=== PATIENT | male | born 1950 | race Two or more races ===

== ENCOUNTER 2023-08-29 05:09 | Day surgery (SDC) | payer OTHER ==
[2023-08-04 11:19] VITALS: BMI 23.3
[2023-08-29] MEDS ORDERED: PROPOFOL 20 ML ONE (12:34)
[2023-08-29] MEDS ORDERED: FENTANYL CITRATE/PF 50 MCG/ML VIAL ONE ×4 (12:34→15:17)
[2023-08-29] MEDS ORDERED: LIDOCAINE HCL/PF 2% SDV 5ML VIAL ONE (12:34)
[2023-08-29] MEDS ORDERED: MIDAZOLAM HCL 2 MG/2 ML SINGLE DOSE VIAL ONE (12:35)
[2023-08-29] MEDS ORDERED: SUCCINYLCHOLINE CHLORIDE 200 MG/10 ML SYRINGE ONE (12:37)
[2023-08-29] MEDS ORDERED: ROCURONIUM BROMIDE 50 MG/5 ML SYRINGE ONE (12:37)
[2023-08-29] MEDS ORDERED: ceFAZolin SODIUM 1 GM VIAL ONE (13:07)
[2023-08-29] MEDS ORDERED: DEXAMETHASONE SOD PHOSPHATE 4 MG/1 ML VIAL ONE (13:07)
[2023-08-29] MEDS ORDERED: GLYCOPYRROLATE 0.2 MG/1 ML VIAL ONE (14:00)
[2023-08-29] MEDS ORDERED: KETOROLAC TROMETHAMINE 30 MG/1 ML VIAL ONE (14:00)
[2023-08-29] MEDS ORDERED: ONDANSETRON 4 MG/2 ML VIAL ONE (14:00)
[2023-08-29] MEDS ORDERED: NEOSTIGMINE METHYLSULFATE 0.5 MG/1 ML - 10 ML MDV ONE (14:00)
[2023-08-29] MEDS ORDERED: PROMETHAZINE HCL 25 MG/1 ML VIAL IVPB PRN (14:48)
[2023-08-29] MEDS ORDERED: ACETAMINOPHEN 1000 MG/100 ML BAG IVPB ONE (14:48)
[2023-08-29] MEDS ORDERED: ONDANSETRON 4 MG/2 ML VIAL IVPUSH PRN (14:48)
[2023-08-29] MEDS ORDERED: oxyCODONE HCL 5 MG TABLET PO PRN ×2 (14:48)
[2023-08-29] MEDS ORDERED: LACTATED RINGERS SOLUTION 1,000 ML IV SCH (15:00)
[2023-08-29] MEDS: ACETAMINOPHEN 1000 MG/100 ML BAG IVPB ONE (15:02)
[2023-08-29 16:08] VITALS: RESP 18
[2023-08-29 17:30] VITALS: BP 125/71; PULSE 79; TEMP 98
== END 2023-08-29 17:10 | disposition home or self-care (01) ==
LOC: JASU-SURG 05:09
PROVIDERS: ATTEND Urology
PROC: 0V507ZZ Destruction of Prostate, Via Natural or Artificial Opening (ICD-10-PCS; principal; 2023-08-29 13:00)
DX: C61 Malignant neoplasm of prostate (principal)
CPT/HCPCS: 94760; J0131